=== PATIENT | female | born 1960 | race Caucasian/White ===

== ENCOUNTER 2021-07-17 11:14 | Observation (INO) | payer MEDICARE, OTHER ==
[2021-07-17 12:17] LABS: #Basophils 0.1 10x3/uL (0.0-0.2); #Eosinphils 0.1 10x3/uL (0.0-0.5); #Monocytes 0.5 10x3/uL (0.0-1.1); #Neutrophils 7.5 10x3/uL (1.5-8.4); %Basophils 0.6 % (0.0-2.0); %Eosinophils 0.9 % (0.0-6.0); %Lymphocytes 23.2 % (18.0-47.0); %Monocytes 4.3 % (0.0-10.0); %Neutrophils 70.6 % (40.0-75.0); Hemoglobin 13.8 g/dL (12.0-15.5); Mean Corpuscular HGB CONC 34.5 g/dL (32.0-36.0); Mean Corpuscular Hemoglobin 28.9 pg (27.0-33.0); Mean Corpuscular Volume 83.7 fl (81.6-98.3); Mean Platelet Volume 9.8 fl (7.4-10.4); Platelet Count 370 10x3/uL (150-450); RBC Distribution Width 13.4 % (11.5-14.5); Red Blood Cell (RBC) Count 4.78 10x6/uL (3.90-5.03); White Blood Cell (WBC) Count 10.6 10x3/uL (3.5-10.5)
[2021-07-17 12:34] LABS: ALT (SGPT) 50 U/L (8-55); AST (SGOT) 38 U/L (5-34); Alkaline Phosphatase 117 U/L (40-110); Anion Gap 16 mmol/L (10-20); BUN (Urea Nitrogen) 11 mg/dL (9.8-20.1); Bilirubin, Total 0.2 mg/dL (0.2-1.2); Calc. Creatinine Clearance 0 mL/min (70-130); Calcium 9.2 mg/dL (7.8-10.44); Carbon Dioxide 19 mmol/L (23-31); Chloride 107 mmol/L (98-107); Globulin 3.4 g/dL (2.4-3.5); Glucose 127 mg/dL (80-115); Lipase 42 U/L (8-78); Potassium 3.9 mmol/L (3.5-5.1); Protein, Total 7.4 g/dL (5.8-8.1); Sodium 138 mmol/L (136-145)
[2021-07-17] MEDS ORDERED: Aspirin Chewable 81 MG TAB ONE (12:51)
[2021-07-17 14:52] LABS: Troponin I Less than 0.010 ng/mL (< 0.028)
[2021-07-17 17:17] VITALS: BMI 39.6
[2021-07-17 17:47] LABS: Troponin I Less than 0.010 ng/mL (< 0.028)
[2021-07-17] MEDS ORDERED: FLU VACC QS2021-22(6MOS UP)/PF 60 MCG/0.5 ML SYRINGE IM ONE (18:30)
[2021-07-17] MEDS ORDERED: rOPINIRole HCl 1 MG TAB PO PRN (20:21)
[2021-07-17] MEDS ORDERED: Cyclobenzaprine 10 MG TAB PO PRN (20:21)
[2021-07-17] MEDS ORDERED: hydrOXYzine Pamoate 25 mg Capsule PO PRN (20:24)
[2021-07-17] MEDS ORDERED: Aripiprazole 10 MG TAB PO SCH (21:00)
[2021-07-17] MEDS ORDERED: HYDROcodone/Acetaminophen 5/325 mg Tablet PO SCH (21:00)
[2021-07-17] MEDS ORDERED: traZODone HCl 50 MG TAB PO SCH (21:00)
[2021-07-17] MEDS ORDERED: traZODone HCl 50 MG TAB PO PRN (21:08)
[2021-07-17] MEDS ORDERED: HYDROcodone/Acetaminophen 5/325 mg Tablet PO PRN (21:08)
[2021-07-17] MEDS ORDERED: traZODone HCl 150 MG TAB PO PRN (23:15)
[2021-07-18 06:13] LABS: Cardiac Risk 4.1 (Less than 4.5)
[2021-07-18] MEDS: hydrOXYzine Pamoate 25 mg Capsule PO PRN ×2 (06:17→12:35)
[2021-07-18] MEDS ORDERED: Enoxaparin Sodium 40 MG/0.4 ML SYRINGE SC SCH (09:00)
[2021-07-18] MEDS ORDERED: Aripiprazole 10 MG TAB PO SCH (09:00)
[2021-07-18] MEDS ORDERED: Aspirin Chewable 81 MG TAB PO SCH (09:00)
[2021-07-18 15:22] VITALS: BP 138/81; TEMP 98.2
[2021-07-18] MEDS ORDERED: Atorvastatin Calcium 20 MG TAB PO SCH (21:00)
== END 2021-07-18 15:45 | disposition home or self-care (01) ==
LOC: CSHERS 11:14 → CSHTELE 16:15
PROVIDERS: ADMIT Internal Medicine; ATTEND Family Medicine
DX: R94.31 Abnormal electrocardiogram [ECG] [EKG] (principal); E66.01 Morbid (severe) obesity due to excess calories; R07.9 Chest pain, unspecified; F41.9 Anxiety disorder, unspecified; I10 Essential (primary) hypertension; I25.10 Atherosclerotic heart disease of native coronary artery without angina pectoris; F31.9 Bipolar disorder, unspecified; E78.5 Hyperlipidemia, unspecified; K58.9 Irritable bowel syndrome, unspecified; K76.0 Fatty (change of) liver, not elsewhere classified
CPT/HCPCS: 36415; 71045; 80053; 80061; 83690; 83880; 84484; 85025; 85379; 93005; 93306; 94760; 96372; G0378; J1650; Q0177